=== PATIENT | male | born 1995 | race Hispanic/Latino ===

== ENCOUNTER 2018-07-11 02:17 | Inpatient (IN) | payer BC ==
[~2018-07-11] VITALS: Ht 170.2 cm; Wt 120.2 kg
[2018-07-11] MEDS: SODIUM CHLORIDE 0.9% 1000ML 1,000 ML IV SCH ×3 (03:05→16:15)
[2018-07-11] MEDS ORDERED: MORPHINE SULFATE 2 MG/ML SYR IV STA (03:14)
[2018-07-11] MEDS ORDERED: ONDANSETRON HCL INJ 2 MG/ML VIAL IV STA (03:14)
[2018-07-11] MEDS ORDERED: SODIUM CHLORIDE 0.9% 1000ML 1,000 ML IV ONE (03:15)
[2018-07-11] MEDS ORDERED: DICYCLOMINE HCL 20 MG/2 ML VIAL IM ONE (03:15)
[2018-07-11] MEDS ORDERED: ACETAMINOPHEN 325 MG TAB PO ONE (03:15)
--- NOTE | 2018-07-11 03:49 | Diagnostic Imaging Report ---
CHEST SINGLE (PORTABLE), 07/11/2018 3:14 AM Technique: CHEST SINGLE (PORTABLE) Comparison: None available. Clinical history: Chest pain Findings: Unremarkable appearance of the heart, mediastinum, lungs and pleural spaces Impression: 1. Lines/Tubes: None 2. No acute abnormality. Signed by: Dr Latosha Mccarty MD on 07/11/2018 3:46 AM
[2018-07-11] MEDS ORDERED: MORPHINE SULFATE INJ 4 MG/ML INJ ONE (03:50)
[2018-07-11 03:56] LABS: BASOPHILS % 0.2 % (0.0-1.0); EOSINOPHILS # (AUTO) 0.3 (0.0-0.4); EOSINOPHILS % 1.7 % (0.0-6.0); HEMATOCRIT 40.2 % (38.2-49.6); HEMOGLOBIN 13.8 g/dL (14.0-18.0); LYMPHOCYTES # (AUTO) 1.4 (1.0-3.2); LYMPHOCYTES % 7.4 % (18.0-39.1); MEAN CORPUSCULAR HEMOGLOBIN 30.1 pg (28-32); MEAN CORPUSCULAR HGB CONC 34.3 g/dL (31-35); MEAN CORPUSCULAR VOLUME 87.6 fL (81-99); MONOCYTES # (AUTO) 1.6 (0.2-0.8); MONOCYTES % 7.9 % (4.4-11.3); NEUTROPHILS # (AUTO) 16.1 (2.1-6.9); NEUTROPHILS % 82.3 % (38.7-80.0); PLATELET COUNT 235 x10e3/uL (140-360); RED BLOOD COUNT 4.59 x10e6/uL (4.3-5.7); RED CELL DISTRIBUTION WIDTH 12.5 % (11.7-14.4)
[2018-07-11 04:05] LABS: CLARITY,URINE CLOUDY (CLEAR); COLOR,URINE YELLOW (YELLOW)
[2018-07-11 04:06] LABS: BILIRUBIN,URINE NEGATIVE (NEGATIVE); KETONES,URINE TRACE (NEGATIVE); LEUKOCYTE ESTERASE ,URINE NEGATIVE (NEGATIVE); NITRITE,URINE NEGATIVE (NEGATIVE); PROTEIN,URINE DIPSTICK NEGATIVE (NEGATIVE); URINE UROBILINOGEN 4 mg/dL (0.2 - 1)
[2018-07-11 04:13] LABS: AMORPHOUS SEDIMENT,URINE MODERATE (FEW); BACTERIA,URINE MODERATE /HPF; EPITHELIAL CELLS,URINE RARE /LPF; RBC,URINE 0-5 /HPF (0-5); WBC,URINE (MAN) 0-5 /HPF (0-5)
[2018-07-11 04:37] LABS: ALANINE AMINOTRANSFERASE 41 IU/L (0-55); ALBUMIN 3.6 g/dL (3.5-5.0); ALKALINE PHOSPHATASE 75 IU/L (40-150); AMYLASE 31 U/L (25-125); ANION GAP 14.1 mmol/L (8-16); BLOOD UREA NITROGEN 13 mg/dL (7-26); BUN/CREATININE RATIO 15 (6-25); CALCIUM 9.1 mg/dL (8.4-10.2); CARBON DIOXIDE 24 mmol/L (22-29); CHLORIDE 100 mmol/L (98-107); CREATINE KINASE 125 IU/L (30-200); CREATININE, SERUM 0.86 mg/dL (0.72-1.25); EST GLOMERULAR FILTRATION RATE > 60 ML/MIN (60-); GLUCOSE 135 mg/dL (74-118); LIPASE 7 U/L (8-78); POTASSIUM 4.1 mmol/L (3.5-5.1); SODIUM 134 mmol/L (136-145)
--- NOTE | 2018-07-11 05:18 | Diagnostic Imaging Report ---
EXAM: US GALLBLADDER DATE: 07/11/2018 12:00 AM INDICATION: , Right upper quadrant pain COMPARISON: None TECHNIQUE: Transverse and longitudinal mckeon scale and color doppler sonographic images of the upper abdomen were obtained. FINDINGS: LIVER 17.4 cm in the right midclavicular line. Increased echogenicity, normal contour, no masses. GALLBLADDER Cholelithiasis with mild wall thickening, 0.3-0.4 cm. There may be trace pericholecystic fluid. Positive sonographic Ibrahim's sign. BILE DUCTS No intra nor extra-hepatic biliary dilation. Common bile duct measures 0.4 cm PANCREAS: Visualized portions are normal. RIGHT KIDNEY: 11.9 cm Echogenicity: Normal Collecting System: No hydronephrosis Stones: None Cyst/Mass: None VESSELS: Aorta: Visualized portions are within normal size limits Inferior Vena Cava: Visualized portions are normal Main Portal Vein: 0.9 cm, normal size with hepatopetal flow. FREE FLUID: None IMPRESSION: 1. Sonographic findings of acute cholecystitis. 2. Hepatic steatosis. Signed by: Dr Latosha Mccarty MD on 07/11/2018 5:15 AM
[2018-07-11] MEDS ORDERED: SODIUM CHLORIDE 0.9% 50ML 50 ML ONE (05:22)
[2018-07-11] MEDS ORDERED: IOPAMIDOL 370 MG/ML 200 ML INFUS..BTL INJ ONE (05:22)
[2018-07-11] MEDS ORDERED: PIPER-TAZ 3.375 GM 50 ML IV ONE (05:45)
--- NOTE | 2018-07-11 06:12 | Diagnostic Imaging Report ---
EXAM: CT CHEST W DATE: 07/11/2018 4:57 AM INDICATION: Positive D dimer COMPARISON: None TECHNIQUE: Multidetector CT scanning of the chest was performed. Coronal and sagittal multiplanar reformations were obtained. CT pulmonary embolism protocol. CT low dose techniques were utilized, as applicable. IV Contrast: 100 ml Isovue 370/300 FINDINGS: Suboptimal contrast bolus (HU 193) precludes adequate assessment at the segmental/subsegmental level. Otherwise no evidence of acute pulmonary embolism. LUNGS AND PLEURA: No consolidations or edema. No effusions or pneumothorax. HEART, MEDIASTINUM, VESSELS: Normal heart size, great vessel caliber. No pericardial effusion. No adenopathy. UPPER ABDOMEN: Incompletely imaged gallbladder with pericholecystic inflammatory stranding; same-day ultrasound findings of acute cholecystitis. MUSCULOSKELETAL: No acute findings. IMPRESSION: Suboptimal contrast bolus/attenuation. Otherwise no evidence of or central acute pulmonary embolism. Signed by: Dr Latosha Mccarty MD on 07/11/2018 6:08 AM
[2018-07-11] MEDS ORDERED: MORPHINE SULFATE 2 MG/ML SYR IV PRN (06:30)
[2018-07-11] MEDS ORDERED: ONDANSETRON HCL INJ 2 MG/ML VIAL IV PRN (06:30)
[2018-07-11] MEDS ORDERED: ACETAMINOPHEN 1000 MG/100 ML IV PRN (06:30)
--- OUTSIDE RECORDS SUMMARY | 2018-07-11 06:33 | XMS REPORT ---
Author [facility] Address Unknown Phone Unavailable Care Team Providers Care Concert Or Lecture Hall Manager Name Role Phone Tracy WELCH Unavailable Unavailable Problems This patient has no known problems. Allergies, Adverse Reactions, Alerts This patient has no known allergies or adverse reactions. Medications This patient has no known medications. Results Test Description Test Time Test Comments Text Results Atomic Results Result Comments CT CHEST W 2018-07-11 06:03:00 [place] [address] Patient Name: ALISON GRAMAJO III MR #: [id number] : 1995 Age/Sex: 23/M Req #: [id number] Adm Physician: Ordered by: SAUD WELCH MD Report #: [id number] Location: ER Room/Bed: Procedure: [id number] CT/CT CHEST W Exam Date: 07/11/18 Exam Time: 0550 REPORT STATUS: Signed EXAM: CT CHEST W DATE: 07/11/2018 4:57 AM INDICATION: Positive D dimer COMPARISON: None TECHNIQUE: Multidetector CT scanning of the chest was performed. Coronal and sagittal multiplanar reformations were obtained. CT pulmonary embolism protocol. CT low dose techniques were utilized, as applicable. IV Contrast: 100 ml Isovue 370/300 FINDINGS: Suboptimal contrast bolus (HU 193) precludes adequate assessment at the segmental/subseg mental level. Otherwise no evidence of acute pulmonary embolism. LUNGS AND PLEURA: No consolidations or edema. No effusions or pneumothorax. HEART, MEDIASTINUM, VESSELS: Normal heart size, great vessel caliber. No pericardial effusion. No adenopathy. UPPER ABDOMEN: Incompletely imaged gallbladder with pericholecystic inflammatory stranding; same-day ultrasound findings of acute cholecystitis. MUSCULOSKELETAL: No acute findings. IMPRESSION: Suboptimal contrast bolus/attenuation. Otherwise no evidence of or central acute pulmonary embolism. Signed by: Dr Anselmo Mccarty MD on 07/11/2018 6:08 AM Dictated By: ANSELMO MCCARTY MD 7 Transcribed By: JERMAINE on 07/11/18607 COPY TO: SAUD WELCH MD US GALLBLADDER 2018-07-11 05:13:00 [place] [address] Patient Name: ALISON GRAMAJO III MR #: [id number] : 1995 Age/Sex: 23/M Req #: [id number] Adm Physician: Ordered by: SAUD WELCH MD Report #: [id number] Location: ER Room/Bed: Procedure: [id number] US/US GALLBLADDER Exam Date: 07/11/18 Exam Time: 0445 REPORT STATUS: Signed EXAM: US GALLBLADDER DATE: 07/11/2018 12:00 AM INDICATION: , Right upper quadrant pain COMPARISON: None TECHNIQUE: Transverse and longitudinal mckeon scale and color doppler sonographic images of the upper abdomen were obtained. FINDINGS: LIVER 17.4 cm in the right midclavicular line. Increased echogenicity, normal contour, no masses. GALLBLADDER Cholelithiasis with mild wall thickening, 0.3-0.4 cm. There may be trace pericholecystic fluid. Positive sonographic Ibrahim's sign. BILE DUCTS No intra nor extra-hepatic biliary dilation. Common bile duct measures 0.4 cm PANCREAS: Visualized portions are normal. RIGHT KIDNEY: 11.9 cm Echogenicity: Normal Collecting System: No hydronephrosis Stones: None Cyst/Mass: None VESSELS: Aorta: Visualized portions are within normal size limits Inferior Vena Cava: Visualized portions are normal Main Portal Vein: 0.9 cm, normal size with hepatopetal flow. FREE FLUID: None IMPRESSION: 1. Sonographic findings of acute cholecystitis. 2. Hepatic steatosis. Signed by: Dr Anselmo Mccarty MD on 07/11/2018 5:15 AM Dictated By: ANSELMO MCCARTY MD 4 Transcribed By: JERMAINE on 07/11/18514 COPY TO: SAUD WELCH MD CHEST SINGLE (PORTABLE) 2018-07-11 03:43:00 [place] [address] Patient Name: ALISON GRAMAJO III MR #: [id number] : 1995 Age/Sex: 23/M Req #: [id number] Adm Physician: Ordered by: SAUD WELCH MD Report #: [id number] Location: ER Room/Bed: Procedure: [id number] DX/CHEST SINGLE (PORTABLE) Exam Date: 07/11/18 Exam Time: 324 REPORT STATUS: Signed CHEST SINGLE (PORTABLE), 07/11/2018 3:14 AM Technique: CHEST SINGLE (PORTABLE) Comparison: None available. Clinical history: Chest pain Findings: Unremarkable appearance of the heart, mediastinum, lungs and pleural spaces Impression: 1. Lines/Tubes: None 2. No acute abnormality. Signed by: Dr Anselmo Mccarty MD on 07/11/2018 3:46 AM Dictated By: ANSELMO MCCARTY MD 5 Transcribed By: JERMAINE on 07/11/18345 COPY TO: SAUD WELCH MD
[2018-07-11] MEDS: MORPHINE SULFATE INJ 4 MG/ML INJ IV PRN ×3 (06:53→22:30)
--- NOTE | 2018-07-11 07:12 | NUR ---
WALKING ROUNDS WITH SHANNA SHEA DAY SHIFT NURSE.
--- NOTE | 2018-07-11 07:40 | History and Physical ---
A 23-year-old male comes in with abdominal pain. HISTORY OF PRESENT ILLNESS: This is Mr. Henning who is a 23-year-old male with a history of non-Hodgkin's lymphoma in remission since age 5 was in his usual state of health until Sunday this week. The patient started with some abdominal pain, which is recurrent for him. This pain lasted more than usual, about 4 hours and 8/10 in intensity, nonradiating. The patient's pain dissipated in about 5 hours. The patient did have some uncomfortable feeling for the next 2 days, and then after this, the patient woke up this morning with pain, 8/10 in intensity. Had nausea and vomiting, and also difficult to breathe. The patient came in and was found to have acute cholecystitis, and was admitted for cholecystitis and possible cholecystectomy. PAST MEDICAL HISTORY: As mentioned above. Non-Hodgkin's lymphoma in remission. PAST SURGICAL HISTORY: No previous history. MEDICATIONS: None. ALLERGIES: SEE NURSE'S NOTES. REVIEW OF SYSTEMS: Negative for chest pain. Positive for shortness of breath. Positive for nausea and vomiting. No diarrhea. No constipation or rectal bleeding. No hematochezia. No hematemesis. No blurry vision. No diplopia. PHYSICAL EXAMINATION GENERAL: The patient is alert and oriented times 3 and hypertensive. VITALS: Temperature is 100.1, satting at 99% on room air. HEENT: Normocephalic and atraumatic. There is no icterus present. CV: S1 and S2 normal. Regular rate and rhythm. LUNGS: Clear to auscultation. ABDOMEN: Tenderness in the right upper quadrant with some guarding. No peritoneal signs present. BACK: Normal. SKIN: No jaundice. EXTREMITIES: No clubbing. No cyanosis. No edema. NEUROLOGICAL: Alert and oriented times 3 and in pain. LABORATORY VALUES: White count is 19,000, hemoglobin of 13.8, hematocrit 40.2. Neutrophil count is 82.3. Left shift present. Chemistry: Sodium 134, potassium is 4.1, BUN was 13, creatinine 0.86. Urine cloudy with a moderate amount of bacteria. Coags were D-dimer was 1.69. IMAGING STUDIES: CT of chest was done because of elevated D-dimer, and showed suboptimal contrast. Otherwise, no evidence of central acute pulmonary embolism. Chest x-ray shows unremarkable heart and mediastinal lungs. Gallbladder ultrasound shows sonographic evidence of acute cholecystitis and hepatic steatosis. PLAN: Consult surgery. Dr. Ned Kong has been consulted. The patient is also started on IV Zosyn 3.375 g q.6 h. and continue with Zofran and fluid resuscitation. Morphine has been given for pain. Further recommendations per clinical course. The patient will need laparoscopic cholecystectomy. Dr. Ned Kong has been consulted. In the meantime, will continue with fluids and IV antibiotics. Job#: [id number] RI
--- NOTE | 2018-07-11 07:45 | NUR ---
Received patient via stretcher from ER. Accompanied by mother and girlfriend. AAOX4 to time, person, place, situation. Respirations even and unlabored. Oriented patient and family to room. Instructed patient to use call light for assistance. Side rails upx2, call light within reach.
[2018-07-11 08:00] VITALS: BP 143/68
[2018-07-11 08:15] LABS: EOSINOPHILS % (MANUAL) 2 % (0-7); LYMPHOCYTES % (MANUAL) 8 % (19-48); METAMYELOCYTES % (MANUAL) 2 % (0-0); MONOCYTES % (MANUAL) 5 % (3.4-9.0); NEUTROPHILS % (MANUAL) 82 % (40-74); PLATELET ESTIMATE ADEQUATE; PLATELET MORPHOLOGY COMMENT NORMAL; RBC MORPHOLOGY COMMENT NORMAL
[2018-07-11] MEDS ORDERED: INFLUENZA VIRUS VAC SPLIT INJ 0.5 ML SYR IM NR (10:00)
[2018-07-11] MEDS ORDERED: BUPIVACAINE 0.25%/EPI 30ML SDV INJ ONE (13:20)
[2018-07-11] MEDS ORDERED: PIPER-TAZ 3.375 GM / NS 50ML IV SCH (14:00)
[2018-07-11] MEDS ORDERED: FENTANYL CITRATE/PF 100MCG/2 ML INJ ONE (14:11)
[2018-07-11] MEDS ORDERED: MIDAZOLAM HCL 2 MG/2 ML VIAL ONE (14:11)
[2018-07-11 15:26] VITALS: BP 103/52
--- NOTE | 2018-07-11 15:46 | Operative Report ---
DATE OF PROCEDURE: July 11, 2018 PREOPERATIVE DIAGNOSIS: Acute cholecystitis and cholelithiasis. POSTOPERATIVE DIAGNOSIS: Acute gangrenous cholecystitis and cholelithiasis. OPERATION PERFORMED: Laparoscopic cholecystectomy. ANESTHESIA: General. COMPLICATIONS: None. ESTIMATED BLOOD LOSS: Minimal. DESCRIPTION OF PROCEDURE: With the patient lying in bed in the supine position under good general endotracheal anesthesia, the abdomen was prepped with Betadine solution and draped in the usual manner. A Veress needle was introduced into the umbilicus and pneumoperitoneum was established without any difficulty. An 11-mm trocar was placed into the umbilicus, and a 10 mm video laparoscope was placed into the intra-abdominal cavity. Under direct vision, three 5-mm trocars were placed in the right subcostal region, and an extra 5-mm trocar was placed in the left upper abdomen to be able to retract the redundant omentum. Video laparoscopy at this point revealed the gallbladder to be totally covered up with adhesions, which upon being able to separate the omentum from the gallbladder. The top half of the gallbladder was found to be acutely inflamed showing gangrenous changes with fibrinous exudate around the gallbladder consistent with acute cholecystitis and cholelithiasis. The thickening extended all the way down to the neck of the gallbladder. The rest the abdominal exploration was otherwise within normal limits. The peritoneum overlying the neck of the gallbladder was then opened and the cystic duct was identified. The cystic duct was followed to its junction with the common duct. Cystic duct was then circumferentially dissected away from the common duct, doubly clipped and divided. The cystic artery was similarly doubly clipped and divided. The gallbladder was then slowly and carefully taken off the liver bed using the cautery scissors. The top half of the gallbladder and the posterior wall on the liver bed had a couple of patches that were gangrenous and had actually perforated into the liver itself. The gallbladder was from the liver bed completely and then placed in a pouch, and removed through the umbilicus after enlarging the umbilical incision to allow for the passage of the inflamed gallbladder and the large stones that were present. Video laparoscopy was then again carried out. The liver bed was found to be perfectly dry. All the excess fluid was aspirated. The pneumoperitoneum was evacuated and all the trocars were removed under direct vision. The midline fascia at the umbilicus was then closed with 2 [id number]-2 of 0 Vicryl. All layers were infiltrated on the way out with a solution of 0.25% Marcaine. Subcutaneous tissue was approximated with 3-0 Vicryl and the skin was closed with subcuticular 5-0 Vicryl. Benzoin, Steri-Strips and Band-Aids were applied. The sponge, lap and needle count was correct. The patient tolerated the procedure well and returned to the recovery room in stable condition. Job#: [id number] OLAF
[2018-07-11] MEDS: PANTOPRAZOLE 40 MG 10ML VIAL IV SCH (16:15)
[2018-07-11] MEDS: PIPER-TAZ 3.375 GM 50 ML IV SCH ×2 (16:15→21:44)
[2018-07-11 16:51] VITALS: BP 132/60
--- NOTE | 2018-07-11 19:12 | NUR ---
Resting in bed. No s/s of acute distress noted. Report given to oncoming nurse
--- NOTE | 2018-07-11 19:30 | NUR ---
Patient visited in room during nursing rounds. Patient alert and oriented x3. Pt ambulated to bathroom to urinate. Patient s/p lap anny with 5 Lap/trocar sites covered with steri strips and band aid appearing clean and dry. Girlfriend at bedside. Pt on IVF (NS @ 125ml/hr). Patient states trocar sites feels sore but acknowledged he felt better after surgery. Call yang within reach. Will monitor closely.
[2018-07-11 20:00] VITALS: BP 139/65
[2018-07-11] MEDS ORDERED: LIDOCAINE HCL 2% LOCAL INJ 5 ML SDV VIAL INJ ONE (21:28)
[2018-07-11] MEDS ORDERED: PROPOFOL IV EMULSION 10 MG/ML 20 ML VIAL ONE (21:28)
[2018-07-11] MEDS ORDERED: GLYCOPYRROLATE INJ 1MG/ 5 ML SYR ONE (21:28)
[2018-07-11] MEDS ORDERED: ROCURONIUM BROMIDE 10 MG/ML 5ML VIAL ONE (21:28)
[2018-07-11] MEDS ORDERED: ONDANSETRON HCL INJ 2 MG/ML VIAL ONE (21:28)
[2018-07-11] MEDS ORDERED: NEOSTIGMINE 5 MG/5ML SYR ONE (21:28)
[2018-07-11] MEDS ORDERED: SEVOFLURANE INHAL SOLN 250 ML PEN BTL ONE (21:28)
[2018-07-11] MEDS ORDERED: DEXAMETHASONE SOD PHOS INJ 4 MG/ML VIAL ONE (21:28)
--- NOTE | 2018-07-11 21:45 | NUR ---
Patient ambulated in room and hallway accompanied by girlfriend. Patient tolerating walks fine.
[2018-07-12] VITALS (8 sets, daily range): BP systolic 105–152; BP diastolic 55–71
[2018-07-12] MEDS: MORPHINE SULFATE INJ 4 MG/ML INJ IV PRN ×2 (04:33→10:12)
[2018-07-12 06:22] LABS: BASOPHILS % 0.1 % (0.0-1.0); HEMATOCRIT 35.4 % (38.2-49.6); HEMOGLOBIN 11.9 g/dL (14.0-18.0); LYMPHOCYTES # (AUTO) 1.1 (1.0-3.2); MEAN CORPUSCULAR HEMOGLOBIN 29.6 pg (28-32); MEAN CORPUSCULAR HGB CONC 33.6 g/dL (31-35); MEAN CORPUSCULAR VOLUME 88.1 fL (81-99); MONOCYTES % 7.3 % (4.4-11.3); NEUTROPHILS # (AUTO) 11.5 (2.1-6.9); PLATELET COUNT 256 x10e3/uL (140-360); RED BLOOD COUNT 4.02 x10e6/uL (4.3-5.7); RED CELL DISTRIBUTION WIDTH 12.2 % (11.7-14.4)
[2018-07-12] MEDS: SODIUM CHLORIDE 0.9% 1000ML 1,000 ML IV SCH ×2 (06:25→13:30)
[2018-07-12 06:39] LABS: ALANINE AMINOTRANSFERASE 46 IU/L (0-55); ALBUMIN 2.9 g/dL (3.5-5.0); ALBUMIN/GLOBULIN RATIO 0.9 (0.8-2.0); ALKALINE PHOSPHATASE 66 IU/L (40-150); AMYLASE 27 U/L (25-125); ANION GAP 12.7 mmol/L (8-16); BLOOD UREA NITROGEN 11 mg/dL (7-26); BUN/CREATININE RATIO 15 (6-25); CALCIUM 8.7 mg/dL (8.4-10.2); CARBON DIOXIDE 22 mmol/L (22-29); CHLORIDE 106 mmol/L (98-107); CREATININE, SERUM 0.75 mg/dL (0.72-1.25); EST GLOMERULAR FILTRATION RATE > 60 ML/MIN (60-); GLUCOSE 124 mg/dL (74-118); POTASSIUM 3.7 mmol/L (3.5-5.1); SODIUM 137 mmol/L (136-145)
[2018-07-12 06:40] LABS: LIPASE < 4 U/L (8-78)
[2018-07-12] MEDS: PIPER-TAZ 3.375 GM 50 ML IV SCH ×3 (06:40→22:07)
--- NOTE | 2018-07-12 07:11 | Progress Note ---
DATE: Patient is admitted for acute cholecystitis, status post laparoscopic cholecystectomy. Patient is currently afebrile and in pain walking around. No other complaints. Pain controlled by hydrocodone, acetaminophen and morphine. OBJECTIVE VITAL SIGNS: Temperature is 98.1, T-max of 99. This is postoperative day #1. Pulse is 74, respirations of 20, blood pressure 152/71, pulse ox 96%. HEENT: Normocephalic and atraumatic. There is no icterus present. CV: S1 and S2 normal. Regular rate and rhythm. ABDOMEN: Nontender and nondistended. EXTREMITIES: No clubbing. No cyanosis. No edema. Surgical site is clean and dry. No signs of infection and/or discharge. LABORATORY VALUES: The patient's white count has come down from 19,000 to 13,000, hemoglobin is 11.9, hematocrit of 35.4. Neutrophil count 84. Chemistry: Sodium 137, potassium 3.7, BUN of 11, creatinine 0.75, glucose of 124. Total bili down from 1.3 to 0.9. Lipase and amylase are within normal limits. ASSESSMENT: Acute cholecystitis. Plan is to continue the patient on Zosyn. Incentive spirometry will be given to the patient for prevention of pneumonia. The patient has sequential compression devices for deep venous thrombosis prophylaxis. Continue monitoring the patient. Advance diet as tolerated. Also, have the patient walk around. Discharge planning in about 1-2 days. Job#: [id number] MA
--- NOTE | 2018-07-12 08:10 | NUR ---
Pt received sitting up in bed, aa/o x3, reports pain 3/10 at present. Refuses pain medication at this time due wanting to walk. Assessment complete, vss. Abd soft, no bm, +flatus. Discussed plan for the day.
--- NOTE | 2018-07-12 09:00 | NUR ---
Pt ambulating in hallway, tolerating well. Encouraged to deep breath and cough
[2018-07-12] MEDS: HYDROCODONE/APAP 7.5MG-325MG 1 EA TAB PO PRN ×2 (14:30→22:07)
[2018-07-12] MEDS: PANTOPRAZOLE 40 MG 10ML VIAL IV SCH (14:30)
--- NOTE | 2018-07-12 19:00 | NUR ---
Patient sitting up in bed with father at bedside. AAOx3 and reports abd pain rating 5/10. Refuses pain medication at this time and requesting to walk. Noted band-aid intact to all 5 sites to abd. Call light within reach and instructed to call for assistance. Patient verbalized understanding.
[2018-07-13] VITALS: BP 113/58
[2018-07-13 04:00] VITALS: BP 117/52
[2018-07-13] MEDS: PIPER-TAZ 3.375 GM 50 ML IV SCH ×2 (05:16→14:35)
[2018-07-13] MEDS: SODIUM CHLORIDE 0.9% 1000ML 1,000 ML IV SCH (05:19)
--- NOTE | 2018-07-13 05:46 | NUR ---
Dr. Loera here for rounding. Ok to discharge if Dr. Florencia Kong is ok to discharge. Prescriptions in the chart.
[2018-07-13 06:29] LABS: BASOPHILS % 0.1 % (0.0-1.0); EOSINOPHILS # (AUTO) 0.2 (0.0-0.4); EOSINOPHILS % 1.8 % (0.0-6.0); HEMATOCRIT 33.8 % (38.2-49.6); HEMOGLOBIN 11.1 g/dL (14.0-18.0); LYMPHOCYTES # (AUTO) 2.4 (1.0-3.2); LYMPHOCYTES % 28.4 % (18.0-39.1); MEAN CORPUSCULAR HEMOGLOBIN 29.8 pg (28-32); MEAN CORPUSCULAR HGB CONC 32.8 g/dL (31-35); MEAN CORPUSCULAR VOLUME 90.6 fL (81-99); MONOCYTES # (AUTO) 0.9 (0.2-0.8); MONOCYTES % 10.3 % (4.4-11.3); NEUTROPHILS # (AUTO) 4.9 (2.1-6.9); NEUTROPHILS % 58.8 % (38.7-80.0); PLATELET COUNT 227 x10e3/uL (140-360); RED BLOOD COUNT 3.73 x10e6/uL (4.3-5.7); RED CELL DISTRIBUTION WIDTH 12.3 % (11.7-14.4)
[2018-07-13 06:52] LABS: ANION GAP 12.6 mmol/L (8-16); BLOOD UREA NITROGEN 11 mg/dL (7-26); BUN/CREATININE RATIO 14 (6-25); CALCIUM 8.8 mg/dL (8.4-10.2); CARBON DIOXIDE 24 mmol/L (22-29); CHLORIDE 106 mmol/L (98-107); EST GLOMERULAR FILTRATION RATE > 60 ML/MIN (60-); GLUCOSE 96 mg/dL (74-118); POTASSIUM 3.6 mmol/L (3.5-5.1); SODIUM 139 mmol/L (136-145)
--- NOTE | 2018-07-13 07:32 | NUR ---
Received patient this morning, rounds completed and patient alert and responsive, pains well managed, call light within reach, IS at bedside, will encourage ambulating and use of IS, pains well managed, will monitor
[2018-07-13] MEDS: HYDROCODONE/APAP 7.5MG-325MG 1 EA TAB PO PRN ×2 (07:59→16:00)
[2018-07-13 08:36] VITALS: BP 124/61
[2018-07-13 08:46] VITALS: BP 124/61
--- NOTE | 2018-07-13 10:11 | NUR ---
Patient OOB and ambulating hallways at this time with .
[2018-07-13 12:39] VITALS: BP 132/79
[2018-07-13] MEDS: PANTOPRAZOLE 40 MG 10ML VIAL IV SCH (15:15)
[2018-07-13] MEDS ORDERED: ACETAMINOPHEN 325 MG TAB PO PRN (15:30)
[2018-07-13 16:55] VITALS: BP 114/60
[2018-07-13] MEDS ORDERED: LEVAQUIN500 MG PO (18:14)
[2018-07-13] MEDS ORDERED: ULTRAM50 MG PO (18:14)
--- NOTE | 2018-07-13 18:19 | NUR ---
Rounds by surgeon and orders in place to discharge patient, discharge instructions given to patient with contacts for f/u appointment and for diet. IV line removed with cath tip in place and dressing applied, prescriptions given to patient
== END 2018-07-13 18:40 | disposition home or self-care (01) | DRG 419 ==
LOC: ER 02:17 → ERHOLD 06:30 → MED/SURG 07:44
PROVIDERS: ADMIT Family Medicine; ATTEND Family Medicine
PROC: 0FT44ZZ Resection of Gallbladder, Percutaneous Endoscopic Approach (ICD-10-PCS; principal; 2018-07-11 12:30)
DX: K80.00 Calculus of gallbladder with acute cholecystitis without obstruction (principal); K82.A1 Gangrene of gallbladder in cholecystitis; K21.9 Gastro-esophageal reflux disease without esophagitis; Z85.72 Personal history of non-Hodgkin lymphomas; K76.0 Fatty (change of) liver, not elsewhere classified
CPT/HCPCS: 36415; 71045; 71260; 76705; 80048; 80053; 81001; 82150; 82550; 82553; 83690; 84484; 85025; 85379; 88304; 93005; 99284; C1766; J0500; J1100; J2001; J2250; J2270; J2405; J2543; J7030; Q9967

== ENCOUNTER 2019-05-14 04:08 | Emergency (ER) | payer BC ==
[~2019-05-14] VITALS: Ht 170.2 cm; Wt 120.2 kg
[~2019-05-14 04:08] MED LIST: LEVAQUIN500 MG PO; ULTRAM50 MG PO
[2019-05-14] MEDS ORDERED: KEFLEX500 MG PO (05:34)
[2019-05-14] MEDS ORDERED: BACTRIM DS TAB1 EACH PO (05:34)
[2019-05-14] MEDS ORDERED: ULTRAM50 MG PO (05:34)
== END 2019-05-14 05:46 | disposition home or self-care (01) ==
LOC: ER 04:08
DX: L02.211 Cutaneous abscess of abdominal wall (principal)
CPT/HCPCS: 99282